=== PATIENT | male | born 1980 | race Caucasian/White ===

== ENCOUNTER 2016-05-24 22:32 | Emergency (ER) | payer MEDICARE, OTHER | END 2016-05-24 22:49 | disposition home or self-care (01) | LOC: ER 22:32 | DX: R21 Rash and other nonspecific skin eruption (principal); Z88.1 Allergy status to other antibiotic agents ==

== ENCOUNTER 2016-08-07 12:51 | Emergency (ER) | payer MEDICARE, OTHER | END 2016-08-07 14:23 | disposition home or self-care (01) | LOC: ER 12:51 | DX: S60.221A Contusion of right hand, initial encounter (principal); M54.2 Cervicalgia; F43.10 Post-traumatic stress disorder, unspecified; Z88.1 Allergy status to other antibiotic agents; W01.0XXA Fall on same level from slipping, tripping and stumbling without subsequent striking against object, initial encounter ==